=== PATIENT | female | born 1980 | race Caucasian/White ===

== ENCOUNTER → 2022-06-05 08:23 | Outpatient (CLI) | payer BC, SELFPAY ==
--- NOTE | ~2022-06-05 | MMUS_ITS ---
EXAMINATION: MM diagnostic noy BI w sofía, US breast BI limited HISTORY: Palpable lump outer left breast near the nipple TECHNIQUE: Craniocaudal, mediolateral, and mediolateral oblique 3-D tomosynthesis images of the breas ts were performed and synthetic 2-D images were generated. CAD analysis was submitted and interpreted . High resolution limited bilateral breast ultrasound was performed. COMPARISON: None, baseline BREAST PARENCHYMAL COMPOSITION: The breasts are extremely dense, which lowers the sensitivity of mamm ography. FINDINGS: MAMMOGRAPHIC FINDINGS: Left breast: There is a 2.6 cm round, obscured, equal density mass at the 3:00 location of the slight ly outer breast near the nipple corresponding to the palpable abnormality of concern. There is a 1.7 cm oval, obscured, equal density mass in the posterior third of the upper-outer quadrant breast at th e 1:00 location 7.5 cm from the nipple. Right breast: There is a 2 cm round, obscured, equal density mass in the posterior third outer breast at the 3:00 location 5 cm from the nipple. ULTRASOUND: Left breast: There is a 3.0 cm cyst at the 3:00 location near the nipple corresponding to the palpabl e abnormality of concern. There are multiple additional cysts in the upper outer quadrant of the left breast. There is a 1.4 x 0.8 cm complex cystic and solid mass with posterior acoustic enhancement an d no internal vascularity at the 2:00 location 2 cm from the nipple. There is an 8 mm oval, circumscr ibed, parallel, hypoechoic mass at the 3:00 location 3 cm from the nipple with no posterior features. Right breast: Simple cysts of the right breast are seen at the 3:00 location including a 2.5 cm cyst corresponding to the mammographic finding. IMPRESSION: 1. Bilateral breast cysts including a cyst corresponding to the palpable abnormality of the left [address]. Some left breast cysts are complicated but probably benign. 2. Recommend 6 month follow-up left diagnostic mammogram and ultrasound. BI-RADS category 3, probably benign findings. Reviewed, dictated and finalized at location A. IMPRESSION: 1. Bilateral breast cysts including a cyst corresponding to the palpable abnorm ality of the left breast. Some left breast cysts are complicated but probably b enign. 2. Recommend 6 month follow-up left diagnostic mammogram and ultrasound. BI-RADS category 3, probably benign findings.
== END ==
PROVIDERS: PCP Physician Assistant; Visit Provider Physician Assistant
DX: N63.20 Unspecified lump in the left breast, unspecified quadrant (principal); R92.8 Other abnormal and inconclusive findings on diagnostic imaging of breast
CPT/HCPCS: 76642; 77062; 77066; G0279